=== PATIENT | male | born 1990 | race Caucasian/White ===

== ENCOUNTER → 2016-08-07 | Day surgery (SDC) | payer OTHER ==
[~2016-08-07] VITALS: Ht 172.7 cm; Wt 84.8 kg
[~2016-08-07] MED LIST: BUPIVACAINE HCL 0.25% 30 ML VIAL As Ordered ONE; KETOROLAC 30 MG/ML VIAL (J1885) IV PRN; KETOROLAC 60 MG/2 ML VIAL (J1885) As Ordered ONE; LIDOCAINE 1% SDV INJ 30 ML VIAL As Ordered ONE; LIDOCAINE 2% INJ 100 MG/5 ML SDV (FOR ANES.) As Ordered ONE; LR 1,000 ML IV SCH; MIDAZOLAM INJ 2 MG/2 ML VIAL (J2250) As Ordered ONE; MULT1TAB10 PO; NEOSTIGMINE 1MG/ML 5 ML SYRINGE (J2710) As Ordered ONE; NORCO, ANEXSIA 5/325MG TABLET (HYDROcodone/ACETAMINOPHEN) PO PRN; ONDANSETRON 4MG/2ML VIAL (J2405) As Ordered ONE; ONDANSETRON 4MG/2ML VIAL (J2405) IV PRN; PERCOCET 5MG/325MG TAB As Ordered ONE; PROPOFOL 200 MG/20 ML VIAL As Ordered ONE; ROCURONIUM BROMIDE 50 MG/5 ML VIAL As Ordered ONE; dexameTHASONE 4 MG/ML 1ML VIAL (J1100) As Ordered ONE; fentaNYL 100 MCG/2 ML INJECTION (J3010) As Ordered ONE; fentaNYL 100 MCG/2 ML INJECTION (J3010) IV PRN; fentaNYL 250 MCG/5 ML INJECTION (J3010) As Ordered ONE; hydroxycut; no medications
[2016-08-07] MEDS: PERCOCET 5MG/325MG TAB PO PRN ×2 (13:30→14:55)
[2016-08-07 16:09] VITALS: BP 137/68
--- NOTE | 2016-08-18 06:40 | RO ---
DATE OF PROCEDURE: 08/07/2016 PREOPERATIVE DIAGNOSIS: Left inguinal hernia. POSTOPERATIVE DIAGNOSIS: Bilateral inguinal hernia. PROCEDURE: Robotic-assisted laparoscopic bilateral inguinal hernia repair. SURGEON: Dr. Lambert Baez. SPRING FORMER: ANESTHESIA: General anesthesia. ESTIMATED BLOOD LOSS: Less than 20 mL. COMPLICATIONS: None. REMARKS: The patient tolerated the procedure well. 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 It has been present for several months. We talked about different methods of repair and agreed on performing laparoscopic repair through transabdominal preperitoneal approach using the Da Braeden robot platform. He received 2 grams of Ancef preoperatively for prophylaxis. He was brought to the operating room, placed supine on the table. General endotracheal anesthesia started without any complications. He was placed in Terry stirrups in lithotomy position. Barksdale catheter was placed. His abdomen and bilateral groin area prepped and draped in usual sterile fashion. After a surgical time-out, we began surgery in through the abdomen down through a small incision just on top of the umbilicus. A Veress needle was inserted. Intra-abdominal insufflation then performed to a pressure of 15 mmHg. Using the same incision, a 5 mm Visiport was placed under direct vision of the laparoscope. Two other working ports were placed and an 8.5 mm left lower quadrant and right lower quadrant port all under direct vision. He was placed in mild Trendelenburg position. The da Braeden robot tower was positioned in-between the patient's legs and the trocars docked onto the robot. I took control of the camera and instruments at the surgeon's console. On diagnostic laparoscopy, hernia was confirmed over the left side. Over the right side, there was a small defect with slight bulging on my occupational therapist assistants putting pressure around the inguinal canal. Starting over the right side, the peritoneum overlying the area was opened up in an arc like fashion starting at the medial umbilical ligament going towards the anterior-superior iliac spine. The peritoneum was dissected off the abdominal wall and continued to expose the pubic tubercle and the Jl's ligament. The extension of peritoneum into the inguinal canal was released. A small cord lipoma was found. We continued dissection inferiorly to prepare the site for placement of a mesh. I chose a medium sized mesh over the area. This was placed onto the preperitoneal space laying flat to cover the hernia defect and secured onto the pubic tubercle using a single stitch of #2-0 Vicryl. After making sure of adequate hemostasis, the peritoneum was then closed using a #2-0 V-Loc. We then turned our attention over the left side. This was a slightly moderately large sized bulging despite only a small peritoneal defect. The peritoneum was widely opened up at the opening of the inguinal canal in the same fashion as a previous side. The peritoneum was then dissected free and the peritoneal extension into the inguinal canal was likewise detached from the cord structures. The vas deferens as well as the testicular vessels was promptly identified. A large fat pad consistent with a large cord lipoma was reduced into the abdominal wall and detached from the surrounding preperitoneal tissues. We continued dissection medially to expose the pubic tubercle towards the symphysis pubis. Again after checking for hemostasis, I then chose a large 3-D Max light mesh to place as bolster over the area. This was placed to adequately cover the internal inguinal opening and secured into the Jl's ligament and pubic tubercle with #2-0 Vicryl. Again after checking for hemostasis, the peritoneum was then closed with #2-0 V-Loc in a running fashion. The removed cord lipoma on both sides was placed in EndoCatch bag and retrieved through one of the working port sites. The abdomen was then deflated. All ports were removed. All skin incisions closed with #4-0 Monocryl in subcuticular fashion. Dermabond dressing was then used for coverage. The patient was promptly awakened, extubated, and Barksdale catheter removed and brought to recovery room stable.
== END | disposition home or self-care (01) ==
LOC: M SDC 07:58
PROVIDERS: ATTEND Surgery
DX: K40.20 Bilateral inguinal hernia, without obstruction or gangrene, not specified as recurrent (principal); K21.9 Gastro-esophageal reflux disease without esophagitis; L70.0 Acne vulgaris; R06.83 Snoring; F17.210 Nicotine dependence, cigarettes, uncomplicated
CPT/HCPCS: 49650; 88304; C1781; J0690; J1100; J1885; J2250; J2405; J2710; J3010